=== PATIENT | male | born 1965 | race African-American/Black ===

== ENCOUNTER 2018-06-04 00:03 | Inpatient (IN) | payer MEDICARE, MEDICAID ==
[2018-06-04] VITALS (10 sets, daily range): BP systolic 123–146; BP diastolic 72–103
[~2018-06-04] VITALS: Ht 175.3 cm; Wt 83.5 kg
[~2018-06-04 00:03] MED LIST: AMLO10TA80 PO; ASPI-1159 PO; CALC667T2 PO; CLON0.2T12 PO; COR6 PO; SEVE800T8 PO
[2018-06-04] MEDS ORDERED: METHYLPREDNISOLONE SOD SUCC 125 MG/2 ML VIAL IV STA (00:07)
[2018-06-04] MEDS ORDERED: IPRATROPIUM BROMIDE (0.02%) 0.5MG/2.5ML NEB HHN STA (00:07)
[2018-06-04] MEDS ORDERED: ALBUTEROL (0.083%) 2.5MG/3ML NEB HHN STA (00:07)
[2018-06-04 00:34] LABS: BASOPHILS % 0.6 % (0.0-2.0); EOSINOPHILS % 7.3 % (0.0-5.0); HEMATOCRIT. 39.8 % (42.0-52.0); HEMOGLOBIN. 13.1 g/dL (14.0-18.0); LYMPHOCYTES % 10.7 % (20.0-50.0); MEAN CORPUSCULAR HEMOGLOBIN 31.6 pg (28.0-32.0); MEAN CORPUSCULAR VOLUME 96.3 fL (80.0-94.0); MEAN PLATELET VOLUME 8.3 fl (7.4-10.4); NEUTROPHILS % 77.4 % (40.0-76.0); PLATELET 150 x1000/uL (130-400); RED BLOOD CELL COUNT 4.14 mill/uL (4.7-6.1); RED CELL DISTRIBUTION WIDTH 16.1 % (11.6-14.6)
[2018-06-04 00:37] LABS: CHLORIDE 99 mEq/L (98-107)
[2018-06-04 00:40] LABS: INR 1.2; PARTIAL THROMBOPLASTIN TIME 29.5 sec (23.4-31.0); PROTHROMBIN TIME 12.7 sec (9.4-11.6)
[2018-06-04] MEDS ORDERED: ASPIRIN 325MG EC TABLET PO NR (02:15)
[2018-06-04] MEDS ORDERED: CALCIUM ACETATE 667MG CAPSULE PO ONE (13:00)
[2018-06-04] MEDS: AMLODIPINE 10MG TABLET PO SCH (13:05)
[2018-06-04] MEDS: CARVEDILOL 6.25 MG TABLET PO SCH (13:06)
[2018-06-04] MEDS: SEVELAMER CARBONATE 800 MG TABLET PO SCH ×2 (13:06→17:19)
[2018-06-04] MEDS ORDERED: IPRATROPIUM/ALBUTEROL 0.5-3(2.5)MG/3ML NEB HHN PRN (13:30)
[2018-06-04] MEDS ORDERED: PREDNISONE 20MG TABLET PO SCH (13:30)
[2018-06-04] MEDS ORDERED: BUDESONIDE 0.5MG/2ML NEB HHN SCH (13:30)
[2018-06-04] MEDS ORDERED: DEXTROSE 50% WATER 50ML SYRINGE IV PRN (13:30)
[2018-06-04] MEDS: INSULIN LISPRO 100 UNITS/ML SUBCUT SCH ×3 (13:40→21:00)
[2018-06-04] MEDS ORDERED: MONTELUKAST SODIUM 10MG TABLET PO SCH (17:00)
[2018-06-04] MEDS: BLOOD SUGAR DIAGNOSTIC STRIP TEST SCH ×2 (17:28→21:00)
[2018-06-04] MEDS: BUDESONIDE 0.5MG/2ML NEB HHN SCH (18:12)
[2018-06-05] VITALS: BP 126/73
[2018-06-05 02:00] VITALS: BP 121/72
[2018-06-05] MEDS: BUDESONIDE 0.5MG/2ML NEB HHN SCH (04:40)
[2018-06-05 06:45] LABS: BASOPHILS % 0.4 % (0.0-2.0); EOSINOPHILS % 1.1 % (0.0-5.0); HEMATOCRIT. 35.2 % (42.0-52.0); HEMOGLOBIN. 11.7 g/dL (14.0-18.0); LYMPHOCYTES % 14.4 % (20.0-50.0); MEAN CORPUSCULAR HEMOGLOBIN 31.6 pg (28.0-32.0); MEAN CORPUSCULAR VOLUME 94.7 fL (80.0-94.0); MONOCYTES % 9.2 % (2.0-8.0); NEUTROPHILS % 74.9 % (40.0-76.0); PLATELET 130 x1000/uL (130-400); RED BLOOD CELL COUNT 3.71 mill/uL (4.7-6.1); RED CELL DISTRIBUTION WIDTH 16.1 % (11.6-14.6)
[2018-06-05] MEDS: BLOOD SUGAR DIAGNOSTIC STRIP TEST SCH ×2 (07:30→12:30)
[2018-06-05 08:00] VITALS: BP 119/64
[2018-06-05] MEDS: SEVELAMER CARBONATE 800 MG TABLET PO SCH ×2 (08:00→13:00)
[2018-06-05] MEDS: INSULIN LISPRO 100 UNITS/ML SUBCUT SCH ×2 (08:00→13:00)
[2018-06-05] MEDS ORDERED: CLONIDINE 0.2MG TABLET PO SCH (09:00)
[2018-06-05] MEDS ORDERED: ASPIRIN 81MG TABLET PO SCH (09:00)
[2018-06-05] MEDS: CARVEDILOL 6.25 MG TABLET PO SCH (09:20)
[2018-06-05] MEDS: AMLODIPINE 10MG TABLET PO SCH (09:21)
[2018-06-05 14:00] VITALS: BP 121/62
== END 2018-06-05 18:35 | disposition home or self-care (01) | DRG 291 ==
LOC: ER 00:03 → 5EST 02:38 → ENRESERV 03:50
PROVIDERS: ADMIT Internal Medicine Nephrology; ATTEND Internal Medicine Nephrology
PROC: 5A09357 Assistance with Respiratory Ventilation, Less than 24 Consecutive Hours, Continuous Positive Airway Pressure (ICD-10-PCS; principal; 2018-06-04)
PROC: 5A1D70Z Performance of Urinary Filtration, Intermittent, Less than 6 Hours Per Day (ICD-10-PCS; 2018-06-04)
DX: I13.2 Hypertensive heart and chronic kidney disease with heart failure and with stage 5 chronic kidney disease, or end stage renal disease (principal); J96.00 Acute respiratory failure, unspecified whether with hypoxia or hypercapnia; I50.43 Acute on chronic combined systolic (congestive) and diastolic (congestive) heart failure; N18.6 End stage renal disease; J44.1 Chronic obstructive pulmonary disease with (acute) exacerbation; F17.210 Nicotine dependence, cigarettes, uncomplicated; E11.22 Type 2 diabetes mellitus with diabetic chronic kidney disease; D63.8 Anemia in other chronic diseases classified elsewhere; E78.5 Hyperlipidemia, unspecified; G40.909 Epilepsy, unspecified, not intractable, without status epilepticus; Z99.2 Dependence on renal dialysis; Z88.8 Allergy status to other drugs, medicaments and biological substances; Z79.899 Other long term (current) drug therapy; Z79.82 Long term (current) use of aspirin; Z71.6 Tobacco abuse counseling
CPT/HCPCS: 36415; 71045; 80048; 80053; 82962; 83880; 84484; 85025; 85610; 85730; 93005; 93306; 96374; 99285; J2930; J7611; J7620; J7626

== ENCOUNTER 2018-06-14 15:46 | Inpatient (IN) | payer MEDICARE, MEDICAID ==
[~2018-06-14] VITALS: Ht 175.3 cm; Wt 76.2 kg
[2018-06-14] MEDS ORDERED: ALBUTEROL (0.083%) 2.5MG/3ML NEB HHN STA (15:54)
[2018-06-14] MEDS ORDERED: METHYLPREDNISOLONE SOD SUCC 125 MG/2 ML VIAL IV STA (15:54)
[2018-06-14] MEDS ORDERED: IPRATROPIUM BROMIDE (0.02%) 0.5MG/2.5ML NEB HHN STA (15:54)
[2018-06-14] MEDS ORDERED: LEVOFLOXACIN 750MG PREMIX 150 ML IV STA (15:54)
[2018-06-14 16:40] LABS: BASOPHILS % 0.7 % (0.0-2.0); EOSINOPHILS % 4.9 % (0.0-5.0); HEMATOCRIT. 38.8 % (42.0-52.0); HEMOGLOBIN. 12.9 g/dL (14.0-18.0); LYMPHOCYTES % 12.7 % (20.0-50.0); MEAN CORPUSCULAR HEMOGLOBIN 31.6 pg (28.0-32.0); MEAN CORPUSCULAR VOLUME 95.2 fL (80.0-94.0); MEAN PLATELET VOLUME 8.2 fl (7.4-10.4); MONOCYTES % 7.8 % (2.0-8.0); NEUTROPHILS % 73.9 % (40.0-76.0); PLATELET 183 x1000/uL (130-400); RED BLOOD CELL COUNT 4.08 mill/uL (4.7-6.1); RED CELL DISTRIBUTION WIDTH 16.9 % (11.6-14.6)
[2018-06-14 16:43] LABS: CHLORIDE 100 mEq/L (98-107)
[2018-06-14 16:46] LABS: INR 1.2; PROTHROMBIN TIME 12.3 sec (9.1-11.1)
[2018-06-14] MEDS ORDERED: ALBUTEROL (0.083%) 2.5MG/3ML NEB HHN NR (17:17)
[2018-06-14] MEDS ORDERED: DIPHENHYDRAMINE 50MG/ML VIAL IV ONE (17:45)
[2018-06-14] MEDS ORDERED: ACETAMINOPHEN 650MG SUPP PR PRN (22:45)
[2018-06-14] MEDS ORDERED: DOCUSATE SODIUM 100MG CAPSULE PO PRN (22:45)
[2018-06-14] MEDS ORDERED: NA PHOS,M-B/NA PHOS,DI-BA ENEMA 118ML PR PRN (22:45)
[2018-06-14] MEDS ORDERED: ONDANSETRON HCL 4MG/2ML VIAL IV PRN (22:45)
[2018-06-14] MEDS ORDERED: IPRATROPIUM/ALBUTEROL 0.5-3(2.5)MG/3ML NEB INH PRN (22:45)
[2018-06-14] MEDS ORDERED: CLONIDINE 0.1MG TABLET PO PRN (22:45)
[2018-06-14] MEDS ORDERED: GUAIFENESIN 200MG/10ML SUGAR FREE UDC PO PRN (22:45)
[2018-06-14] MEDS ORDERED: ACETAMINOPHEN 650MG/20.3ML UDC GT PRN (22:45)
[2018-06-14] MEDS ORDERED: MAGNESIUM/ALUMINUM HYDROXIDE/SIMETHICONE 30ML UDC PO PRN (22:45)
[2018-06-14] MEDS ORDERED: ACETAMINOPHEN 325MG TABLET PO PRN (22:45)
[2018-06-14] MEDS ORDERED: HYDROCODONE/ACETAMINOPHEN 5/325MG TABLET PO PRN (22:45)
[2018-06-14] MEDS ORDERED: DIPHENHYDRAMINE 50MG/ML VIAL IV PRN (22:45)
[2018-06-14 23:15] VITALS: BP 154/99
[2018-06-15] VITALS (12 sets, daily range): BP systolic 127–173; BP diastolic 71–101
[2018-06-15] MEDS: METHYLPREDNISOLONE SOD SUCC 125 MG/2 ML VIAL IV SCH ×4 (03:04→21:42)
[2018-06-15 05:59] LABS: BG BASE EXCESS 1.5 mmol/L (-2.0-2.0); BG BILEVEL POS AIRWAY PRESSURE 15/5; BG CARBOXYHEMOGLOBIN 0.7 % (0.5-1.5); BG DEOXYHEMOGLOBIN 0.6 % (0.0-5.0); BG FRACTION INSPIRED OXYGEN 50; BG HCO3 ACT 25.2 mmol/L (22.0-26.0); BG METHEMOGLOBIN 0.5 % (0.0-1.5); BG OXYGEN SATURATION 99.4 % (92.0-98.5); BG OXYHEMOGLOBIN 98.2 % (94.0-97.0); BG PCO2 36.8 mmHg (35.0-45.0); BG PH 7.453 (7.350-7.450); BG PO2 192.5 mmHg (75.0-100.0); BG SAMPLE SITE RIGHT RADIAL; BG TOTAL HEMOGLOBIN 13.5 g/dL (12.0-18.0); BG VENT MODE MASK - BIPAP
[2018-06-15 06:40] LABS: HEMATOCRIT. 39.6 % (42.0-52.0); HEMOGLOBIN. 13.1 g/dL (14.0-18.0); MEAN CORPUSCULAR HEMOGLOBIN 31.3 pg (28.0-32.0); MEAN CORPUSCULAR VOLUME 94.5 fL (80.0-94.0); MEAN PLATELET VOLUME 8.2 fl (7.4-10.4); PLATELET 168 x1000/uL (130-400); RED BLOOD CELL COUNT 4.19 mill/uL (4.7-6.1); RED CELL DISTRIBUTION WIDTH 16.3 % (11.6-14.6)
[2018-06-15 07:13] LABS: CHLORIDE 100 mEq/L (98-107)
[2018-06-15] MEDS: SODIUM CHLORIDE 0.9% INJ 3ML FLUSH IVF SCH ×3 (07:16→21:43)
[2018-06-15 07:27] LABS: LDL CHOLESTEROL 114 mg/dL (5-100)
[2018-06-15 07:28] LABS: CREATINE KINASE 114 IU/L (39-308)
[2018-06-15 07:29] LABS: HDL CHOLESTEROL 78 mg/dL (40-59)
[2018-06-15] MEDS ORDERED: MEDICATION NOT ON FORMULARY EA (Sevelamer Carbonate (Renvela) 1 TAB) PO SCH (08:00)
[2018-06-15] MEDS ORDERED: CALCIUM ACETATE PO SCH (08:00)
[2018-06-15] MEDS: ASPIRIN 81MG TABLET PO SCH (08:54)
[2018-06-15] MEDS: CALCIUM ACETATE 667MG CAPSULE PO SCH ×4 (08:54→18:07)
[2018-06-15] MEDS: FAMOTIDINE 20MG/2ML VIAL IV SCH (08:54)
[2018-06-15] MEDS: AMLODIPINE 10MG TABLET PO SCH (08:55)
[2018-06-15] MEDS: CLONIDINE 0.2MG TABLET PO SCH (08:55)
[2018-06-15] MEDS: CARVEDILOL 6.25 MG TABLET PO SCH ×2 (08:55→21:44)
[2018-06-15] MEDS ORDERED: CLONIDINE HCL 0.2 MG PO SCH (09:00)
[2018-06-15] MEDS: IPRATROPIUM/ALBUTEROL 0.5-3(2.5)MG/3ML NEB INH SCH ×3 (09:55→21:33)
[2018-06-15 12:14] LABS: CLARITY URINE CLEAR (CLEAR); COLOR URINE YELLOW (YELLOW); KETONES URINE NEGATIVE (NEGATIVE); LEUKOCYTE ESTERASE URINE NEGATIVE (NEGATIVE); NITRITE URINE NEGATIVE (NEGATIVE); OCCULT BLOOD URINE NEGATIVE (NEGATIVE); PH URINE >=9.0 (4.5-8.0); PROTEIN URINE 2+ (NEGATIVE); SPECIFIC GRAVITY URINE 1.011 (1.005-1.030); UROBILINOGEN URINE 0.2 E.U./dL (0.2-1.0)
[2018-06-15 12:19] LABS: *AMPHETAMINES SCREEN URINE NEGATIVE (NEGATIVE); *BARBITURATES SCREEN URINE NEGATIVE (NEGATIVE); *BENZODIAZEPINES SCREEN URINE NEGATIVE (NEGATIVE); *COCAINE SCREEN URINE NEGATIVE (NEGATIVE)
[2018-06-15 12:20] LABS: CANNABINOID URINE SCREEN NEGATIVE (NEGATIVE); METHADONE URINE SCREEN NEGATIVE (NEGATIVE); OPIATES URINE SCREEN NEGATIVE (NEGATIVE); PHENCYCLIDINE URINE SCREEN NEGATIVE (NEGATIVE)
[2018-06-15 12:29] LABS: PLATELET ESTIMATE NORMAL
[2018-06-15] MEDS: SEVELAMER CARBONATE 800 MG TABLET PO SCH (18:07)
[2018-06-16] VITALS (8 sets, daily range): BP systolic 124–148; BP diastolic 78–90
[2018-06-16] MEDS: IPRATROPIUM/ALBUTEROL 0.5-3(2.5)MG/3ML NEB INH SCH ×2 (01:52→08:39)
[2018-06-16] MEDS: METHYLPREDNISOLONE SOD SUCC 125 MG/2 ML VIAL IV SCH ×2 (02:22→08:05)
[2018-06-16] MEDS: SODIUM CHLORIDE 0.9% INJ 3ML FLUSH IVF SCH ×2 (06:00→13:58)
[2018-06-16 07:21] LABS: HEMATOCRIT. 39.2 % (42.0-52.0); HEMOGLOBIN. 12.9 g/dL (14.0-18.0); MEAN CORPUSCULAR HEMOGLOBIN 31.2 pg (28.0-32.0); MEAN CORPUSCULAR VOLUME 94.3 fL (80.0-94.0); MEAN PLATELET VOLUME 8.6 fl (7.4-10.4); PLATELET 171 x1000/uL (130-400); RED BLOOD CELL COUNT 4.15 mill/uL (4.7-6.1); RED CELL DISTRIBUTION WIDTH 16.7 % (11.6-14.6)
[2018-06-16] MEDS: AMLODIPINE 10MG TABLET PO SCH (08:04)
[2018-06-16] MEDS: ASPIRIN 81MG TABLET PO SCH (08:04)
[2018-06-16] MEDS: CALCIUM ACETATE 667MG CAPSULE PO SCH ×2 (08:04→13:57)
[2018-06-16] MEDS: SEVELAMER CARBONATE 800 MG TABLET PO SCH ×2 (08:04→13:57)
[2018-06-16] MEDS: CLONIDINE 0.2MG TABLET PO SCH (08:05)
[2018-06-16] MEDS: FAMOTIDINE 20MG/2ML VIAL IV SCH (08:05)
[2018-06-16] MEDS: CARVEDILOL 6.25 MG TABLET PO SCH (08:05)
[2018-06-16 13:38] LABS: PLATELET ESTIMATE NORMAL
[2018-06-16] MEDS ORDERED: METHYLPREDNISOLONE SOD SUCC 40 MG/ML VIAL IV SCH (14:00)
[2018-06-17] MEDS ORDERED: PREDNISONE 20MG TABLET PO SCH (09:00)
== END 2018-06-16 17:35 | disposition home or self-care (01) | DRG 291 ==
LOC: ER 15:46 → EDBEDREQ 20:07 → EDBEDREQTM 20:09 → 5EST 20:42 → EDBEDREQTM 20:44 → EDBEDREQ 20:44 → ENRESERV 20:54
PROVIDERS: ADMIT Family Medicine; ATTEND Family Medicine
PROC: 5A09357 Assistance with Respiratory Ventilation, Less than 24 Consecutive Hours, Continuous Positive Airway Pressure (ICD-10-PCS; principal; 2018-06-14)
PROC: 5A09357 Assistance with Respiratory Ventilation, Less than 24 Consecutive Hours, Continuous Positive Airway Pressure (ICD-10-PCS; 2018-06-15)
DX: I13.2 Hypertensive heart and chronic kidney disease with heart failure and with stage 5 chronic kidney disease, or end stage renal disease (principal); I50.33 Acute on chronic diastolic (congestive) heart failure; J96.01 Acute respiratory failure with hypoxia; N18.6 End stage renal disease; J44.1 Chronic obstructive pulmonary disease with (acute) exacerbation; D63.8 Anemia in other chronic diseases classified elsewhere; E87.5 Hyperkalemia; F17.210 Nicotine dependence, cigarettes, uncomplicated; Z99.2 Dependence on renal dialysis; Z88.8 Allergy status to other drugs, medicaments and biological substances; Z79.82 Long term (current) use of aspirin; Z79.899 Other long term (current) drug therapy
CPT/HCPCS: 36415; 36600; 71045; 80048; 80053; 80061; 80305; 81003; 82375; 82550; 82805; 83036; 83605; 83880; 84443; 84484; 85025; 85379; 85610; 87040; 87086; 93005; 93970; 94640; 94660; 96365; 96366; 96375; 99291; J1200; J1956; J2920; J2930; J3490; J7030; J7611; J7620